=== PATIENT | female | born 1970 | race American Indian/Alaskan Native ===

== ENCOUNTER 2019-08-27 08:19 | Outpatient (CLI) | payer BC ==
[2019-08-27] MEDS ORDERED: REGADENOSON 0.4 MG/5 ML INJ IV ONE (11:13)
[2019-08-27 12:58] VITALS: BP 131/80
== END 2019-08-27 08:20 | disposition home or self-care (01) ==
LOC: ECHO 08:19
PROVIDERS: ATTEND Internal Medicine Cardiovascular Disease
DX: R00.2 Palpitations (principal); I10 Essential (primary) hypertension; R07.89 Other chest pain; R94.31 Abnormal electrocardiogram [ECG] [EKG]
CPT/HCPCS: 78452; 93017; 93306; A9502

== ENCOUNTER 2019-09-29 06:42 | Day surgery (SDC) | payer BC ==
[2019-09-29 07:39] LABS: Basophils % (Auto) 0.5 % (0.0-1.8); Eosinophils % (Auto) 1.4 % (0.0-4.3); Hematocrit 39.7 % (30.3-42.9); Hemoglobin 13.1 gm/dl (10.1-14.3); Lymphocytes # (Auto) 1.6 K/mm3 (1.2-5.4); Lymphocytes % (Auto) 50.1 % (13.4-35.0); Mean Corpuscular HGB Conc 33 % (30-34); Mean Corpuscular Volume 80 fl (79-97); Monocytes # (Auto) 0.3 K/mm3 (0.0-0.8); Platelet Count 296 K/mm3 (140-440); Red Blood Count 4.95 M/mm3 (3.65-5.03); Red Cell Distribution Width 14.9 % (13.2-15.2)
[2019-09-29 07:54] LABS: BUN/Creatinine Ratio 25; Blood Urea Nitrogen 15 mg/dL (7-17); Calcium 9.2 mg/dL (8.4-10.2); Hemolysis Index 6
[2019-09-29 07:57] LABS: INR 1.05 (0.87-1.13); Partial Thromboplastin Time 27.9 Sec. (24.2-36.6)
[2019-09-29] MEDS ORDERED: LIDOCAINE (2%) 20 MG/1 ML VIAL 20 ML MDV INFILTRATI ONE (08:00)
[2019-09-29] MEDS ORDERED: MIDAZOLAM 2 MG/2 ML INJ ONE (08:00)
[2019-09-29] MEDS ORDERED: HEPARIN/NS 5000 UNIT/500ML 1,000 ML IR ONE (08:00)
[2019-09-29] MEDS ORDERED: HEPARIN 10,000 UNITS/10 ML VIAL ONE (08:00)
[2019-09-29] MEDS: SODIUM CHLORIDE 0.9% 500 ML 500 ML IV SCH ×2 (08:00→08:30)
[2019-09-29] MEDS ORDERED: VERAPAMIL 5 MG/2 ML INJ ONE (08:00)
[2019-09-29] MEDS ORDERED: fentaNYL 100 MCG/2 ML INJ ONE (08:00)
[2019-09-29] MEDS ORDERED: POTASSIUM CHLORIDE ER 20 MEQ TAB PO ONE ×2 (08:03→08:30)
[2019-09-29] MEDS: NITROGLYCERIN SYRINGE 3 ML ONE ×2 (08:42→08:43)
--- NOTE | 2019-09-29 09:19 | Short Stay Summary ---
Short Stay Documentation Date of service: 09/29/19 - History H&P: obtained from office - Allergies and Medications Current Medications: Allergies Penicillins Allergy (Verified 08/27/19 11:12) Swelling Home Medications Medication Instructions Recorded Confirmed Last Taken Type Aspirin [Aspirin BABY CHEW TAB] 81 mg PO DAILY 09/29/19 09/29/19 09/29/19 07:45 History 81 MG Losartan [Cozaar] 100 mg PO DAILY 09/29/19 09/29/19 09/28/19 History 100 MG Metoprolol Xl [Metoprolol 50 mg PO BID 09/29/19 09/29/19 09/29/19 07:45 History SUCCINATE ER TAB] 50 mg amLODIPine 10 mg PO DAILY 09/29/19 09/29/19 09/29/19 07:45 History 10 MG hydroCHLOROthiazide 12.5 mg PO DAILY 09/29/19 09/29/19 09/28/19 History [Hydrochlorothiazide] 12.5MG Active Medications Sodium Chloride (Nacl 0.9% 500 Ml) 500 mls @ 50 mls/hr IV DIRECT ÁLVARO Stop: 09/29/19 17:59 Last Admin: 09/29/19 08:30 Dose: 50 mls/hr Documented by: - Brief post op/procedure progress note Date of procedure: 09/29/19 Pre-op diagnosis: cp Post-op diagnosis: same Procedure: see report Anesthesia: local Estimated blood loss: none Pathology: none - Disposition Condition at discharge: Good Disposition: DC-01 TO HOME OR SELFCARE - Discharge Diagnoses (1) Chest pain Status: Acute Qualifiers: Chest pain type: unspecified Qualified Code(s): R07.9 - Chest pain, unspecified (2) Hyperlipemia, mixed Status: Chronic (3) Diabetes mellitus Status: Chronic Qualifiers: Diabetes mellitus type: type 2 Diabetes mellitus remote computer terminal operator insulin use: with remote computer terminal operator use Diabetes mellitus complication status: without complication Qualified Code(s): E11.9 - Type 2 diabetes mellitus without complications; Z79.4 - group home (current) use of insulin Short Stay Discharge Plan Activity: advance as tolerated Diet: low fat, low cholesterol Wound: keep clean and dry Special Instructions: hold Metformin Follow up with: JAIMEE ALICEA MD [Primary Care Provider] - 7 Days
--- NOTE | 2019-09-29 09:24 | Cardiac Catherization Report ---
LEFT HEART CATHETERIZATION ORDERING PHYSICIAN: Dr. Monson's office. CLINICAL INFORMATION: This is a 49-year-old -[place] female who is having recurrent chest pain with mildly abnormal stress test despite being on beta blockers who has hypertension, diabetes, cholesterol. The patient was done with moderate sedation started at 8:28 a.m., finished at 8:50 which is 22 minutes of moderate sedation. Procedure was done via the right radial artery, sterile technique, local anesthesia, 6-Peruvian radial sheath inserted. Left system was engaged with JL3.5 catheter, left main is large and patent, bifurcates into large LAD, is patent from proximally and distally. High diagonal 1 is a large caliber vessel, patent. Diagonal 2 is a small to medium caliber and patent. Circumflex is a large caliber vessel, patent, goes into large OM1 that is patent. OM2 and OM3 are caliber vessel, patent. RCA is a large dominant vessel engaged with JR4 catheter, inferior takeoff, patent from proximally and distally. PDA, PLV are medium caliber vessels. LV gram done in SAMI and SAN view shows normal LV function, EF 55-60%. LVEDP 7 mmHg, LV is 133 mmHg. Aortic is 131/74. No gradient across the aortic valve on pullback. 5-Peruvian catheters all taken over guidewire, 6-Peruvian radial sheath was discontinued. Radial band applied. No hematoma, no bleeding. SUMMARY: Left main patent, LAD patent, diagonal 1 patent, diagonal 2 patent, circumflex patent, OM1 patent, RCA large, dominant, patent. PDA, PLV patent, normal LV function. Continue risk factor modification. Discussed this with the patient and the patient's family in detail. JOB# [id number] NERI/LEONEL
[2019-09-29 12:16] VITALS: BP 130/75
== END 2019-09-29 13:15 | disposition home or self-care (01) ==
LOC: CATHLABREC 06:42
PROVIDERS: ATTEND Internal Medicine
DX: R07.89 Other chest pain (principal); R94.39 Abnormal result of other cardiovascular function study; E11.9 Type 2 diabetes mellitus without complications; I10 Essential (primary) hypertension; E78.2 Mixed hyperlipidemia; Z88.0 Allergy status to penicillin; Z79.899 Other long term (current) drug therapy; Z79.82 Long term (current) use of aspirin; Z90.710 Acquired absence of both cervix and uterus; Z98.890 Other specified postprocedural states
CPT/HCPCS: 36415; 80048; 85025; 85610; 85730; 93005; 93458; 99156; C1894; J1644; J2250; J3010; J7040; Q9967

== ENCOUNTER 2020-06-10 07:53 | Emergency (ER) | payer BC ==
[2020-06-10 08:16] VITALS: BP 131/84
--- NOTE | 2020-06-10 08:43 | Emergency Department Report ---
ED Lower Extremity HPI - General Chief Complaint: Extremity Injury, Lower Stated Complaint: LEG PAINS Source: patient Mode of arrival: Ambulatory Limitations: No Limitations - History of Present Illness Initial Comments: 49-year-old morbid obese -[place] female that presents to the emergency room for left lower extremity tightness behind her knee. Patient reports pain started last night. Patient is concerned for clot. Patient works as a tech here in the hospital. Patient denies smoking cigarettes denies any control or hormonal medications. She has not recently traveled and has no cancer. Patient has no recent falls does have a past medical history of hypertension and obesity. She states that she has been wearing her knee braces on both legs secondary to chronic knee pain states that she has [id number]. She is not sure if the knee brace has caused the swelling and pain or if she has a clot. MD Complaint: knee injury -: During the night Injury: Knee: Left Severity scale (0 -10): 7 Improves With: nothing Worsens With: nothing Associated Symptoms: swelling - Related Data Home Medications Medication Instructions Recorded Confirmed Last Taken Aspirin [Aspirin BABY CHEW TAB] 81 mg PO DAILY 09/29/19 09/29/19 09/29/19 07:45 81 MG Losartan [Cozaar] 100 mg PO DAILY 09/29/19 09/29/19 09/28/19 100 MG Metoprolol Xl [Metoprolol 50 mg PO BID 09/29/19 09/29/19 09/29/19 07:45 SUCCINATE ER TAB] 50 mg amLODIPine 10 mg PO DAILY 09/29/19 09/29/19 09/29/19 07:45 10 MG hydroCHLOROthiazide 12.5 mg PO DAILY 09/29/19 09/29/19 09/28/19 [Hydrochlorothiazide] 12.5MG Allergies Allergy/AdvReac Type Severity Reaction Status Date / Time Penicillins Allergy Swelling Verified 08/27/19 11:12 ED Review of Systems ROS: Stated complaint: LEG PAINS Other details as noted in HPI Comment: All other systems reviewed and negative ED Past Medical Hx - Past Medical History Previous Medical History?: Yes Hx Hypertension: Yes Hx Diabetes: No (report previous hx metformin medication for high A1C, no longer [id number]) - Surgical History Past Surgical History?: Yes Hx Breast Surgery: Yes (Bx) - Social History Smoking Status: Never Smoker Substance Use Type: Alcohol - Medications Home Medications: Home Medications Medication Instructions Recorded Confirmed Last Taken Type Aspirin [Aspirin BABY CHEW TAB] 81 mg PO DAILY 09/29/19 09/29/19 09/29/19 07:45 History 81 MG Losartan [Cozaar] 100 mg PO DAILY 09/29/19 09/29/19 09/28/19 History 100 MG Metoprolol Xl [Metoprolol 50 mg PO BID 09/29/19 09/29/19 09/29/19 07:45 History SUCCINATE ER TAB] 50 mg amLODIPine 10 mg PO DAILY 09/29/19 09/29/19 09/29/19 07:45 History 10 MG hydroCHLOROthiazide 12.5 mg PO DAILY 09/29/19 09/29/19 09/28/19 History [Hydrochlorothiazide] 12.5MG ED Physical Exam - General Limitations: No Limitations General appearance: alert, in no apparent distress, obese - Head Head exam: Present: atraumatic, normocephalic - Eye Eye exam: Present: normal appearance - ENT ENT exam: Present: mucous membranes moist - Neck Neck exam: Present: normal inspection, full ROM - Respiratory Respiratory exam: Absent: accessory muscle use - Cardiovascular Cardiovascular Exam: Present: regular rate - Expanded Lower Extremity Exam Left Knee exam: Present: full ROM, tenderness (Posterior). Absent: deformity, dislocation, erythema Lower Leg exam: Present: full ROM, tenderness (Superior calf) Ankle exam: Present: normal inspection Foot/Toe exam: Present: normal inspection Gait: Positive: observed and normal - Back Exam Back exam: Present: normal inspection, full ROM - Neurological Exam Neurological exam: Present: alert, oriented X3, normal gait - Psychiatric Psychiatric exam: Present: normal affect, normal mood - Skin Skin exam: Present: warm, dry, intact, normal color. Absent: rash ED Course Vital Signs 06/10/20 08:10 Temperature 97.9 F Pulse Rate 83 Respiratory 20 Rate Blood Pressure 131/84 O2 Sat by Pulse 98 Oximetry ED Lower Extremity MDM - Radiology Data Radiology results: report reviewed Patient: ROBLES ABRAMS MR#: [id number] : 1970 Acct:[id number] Age/Sex: 49 / F ADM Date: 06/10/20 Loc: ED Attending Dr: Ordering Physician: NOY NINA Date of Service: 06/10/20 Procedure(s): VL venous duplex LE LT Accession Number(s): [id number] cc: NOY NINA DUPLEX DOPPLER LOWER EXTREMITY VEINS, LEFT INDICATION: pain behind her knee and swelling. TECHNIQUE: Duplex doppler imaging was performed through the veins of the left lower extremity using venous compression and other maneuvers. COMPARISON: None available. FINDINGS: Common Femoral vein: Negative. Superficial Femoral vein: Negative. Popliteal vein: Negative. Calf veins: Negative. Additional findings: Small popliteal cyst measuring 2 x 1 cm.. IMPRESSION: 1. No sonographic evidence for DVT in the left lower extremity. Signer Name: Phil Butts MD Signed: 06/10/2020 10:09 AM Workstation Name: [id number] Transcribed By: JAMIE Dictated By: Phil Butts MD Electronically Authenticated By: Phil Butts MD Signed Date/Time: 06/10/20 1009 DD/ 1008 TD/TT: - Medical Decision Making 49-year-old morbid obese -[place] female that presents to the emergency room for left lower extremity tightness behind her knee. Patient reports pain started last night. Patient is concerned for clot. Patient works as a tech here in the hospital. Patient denies smoking cigarettes denies any control or hormonal medications. She has not recently traveled and has no cancer. Patient has no recent falls does have a past medical history of hypertension and obesity. She states that she has been wearing her knee braces on both legs secondary to chronic knee pain states that she has [id number]. She is not sure if the knee brace has caused the swelling and pain or if she has a clot. Left lower extremity Doppler has been ordered. Ultrasounds negative for DVT. Patient to take Tylenol ibuprofen for pain. Discussed the patient is most likely due to her neoprene knee brace that she has worn for several hours and this may have caused some structure to her leg which causes pain in mild swelling. Patient is to follow-up with her primary care provider. Critical care attestation.: If time is entered above; I have spent that time in minutes in the direct care of this critically ill patient, excluding procedure time. ED Disposition Clinical Impression: Pain in left lower leg Disposition: DC-01 TO HOME OR SELFCARE Is pt being admited?: No Does the pt Need Aspirin: No Condition: Stable Additional Instructions: Ultrasounds negative for DVT. Most likely this pain and swelling is due from your ankle brace being too tight and wearing it too long. I recommend for you to follow-up with your primary care provider. He can take Tylenol or ibuprofen as needed for pain management.
--- NOTE | 2020-06-10 10:13 | Vascular Lab Report ---
DUPLEX DOPPLER LOWER EXTREMITY VEINS, LEFT INDICATION: pain behind her knee and swelling. TECHNIQUE: Duplex doppler imaging was performed through the veins of the left lower extremity using venous compr ession and other maneuvers. COMPARISON: None available. FINDINGS: Common Femoral vein: Negative. Superficial Femoral vein: Negative. Popliteal vein: Negative. Calf veins: Negative. Additional findings: Small popliteal cyst measuring 2 x 1 cm.. IMPRESSION: 1. No sonographic evidence for DVT in the left lower extremity. Signer Name: Phil Butts MD Signed: 06/10/2020 10:09 AM Workstation Name: [id number]
== END 2020-06-10 10:34 | disposition home or self-care (01) ==
LOC: ED 07:53
DX: M79.662 Pain in left lower leg (principal); I10 Essential (primary) hypertension; E11.9 Type 2 diabetes mellitus without complications; Z88.0 Allergy status to penicillin; Z79.899 Other long term (current) drug therapy; Z98.890 Other specified postprocedural states

== ENCOUNTER 2021-10-18 09:46 | Day surgery (SDC) | payer BC ==
[2021-09-25 08:57] LABS: Hematocrit 38.9 % (30.3-42.9); Hemoglobin 12.5 gm/dl (10.1-14.3); Mean Corpuscular HGB Conc 32 % (30-34); Mean Corpuscular Volume 82 fl (79-97); Platelet Count 282 K/mm3 (140-440); Red Blood Count 4.77 M/mm3 (3.65-5.03)
[2021-09-25 09:14] LABS: Blood Urea Nitrogen 22 mg/dL (7-17); Calcium 9.3 mg/dL (8.4-10.2); Hemolysis Index 0
[2021-09-25 09:15] LABS: BUN/Creatinine Ratio 37
[2021-10-18] MEDS ORDERED: LACTATED RINGERS 1,000 ML ONE (10:39)
[2021-10-18] MEDS ORDERED: LACTATED RINGERS 1,000 ML IV SCH (11:15)
[2021-10-18] MEDS ORDERED: BUPIVACAINE/PF (0.5%) 5 MG/1 ML 10 ML VIAL INFILTRATI ONE ×3 (13:08→15:11)
[2021-10-18] MEDS ORDERED: methylPREDNISolone ACETATE 40 MG/1 ML INJ ONE (13:08)
[2021-10-18] MEDS ORDERED: LIDOCAINE (1%) 10 MG/1 ML VIAL 20 ML MDV ONE (13:08)
[2021-10-18] MEDS ORDERED: fentaNYL 100 MCG/2 ML INJ ONE (14:21)
[2021-10-18] MEDS ORDERED: SODIUM CHLORIDE 0.9% 500 ML 500 ML ONE (14:21)
[2021-10-18] MEDS ORDERED: MIDAZOLAM 2 MG/2 ML INJ ONE (14:21)
[2021-10-18] MEDS ORDERED: propofoL 200 MG/20 ML VIAL IV ONE ×4 (14:22→15:48)
--- NOTE | 2021-10-18 15:02 | Anesthesia Day of Surgery ---
Anesthesia Day of Surgery - Day of Surgery Patient Examined: Yes Patient H&P Reviewed: Yes Patient is NPO: Yes
--- NOTE | 2021-10-18 15:04 | Anesthesia Consultation ---
Anesthesia Consult and Med Hx Date of service: 10/18/21 - Airway Anesthetic Teeth Evaluation: Good ROM Head & Neck: Adequate Mental/Hyoid Distance: Adequate Mallampati Class: Class III Intubation Access Assessment: Probably Good - Pre-Operative Health Status ASA Pre-Surgery Classification: ASA3 Proposed Anesthetic Plan: MAC (GA if needed) - Pulmonary Hx Smoking: No SOB: Yes (WITH ACTIVITY) Hx Sleep Apnea: No (ZAIRE PRE SCREEN HIGH RISK) - Cardiovascular System Hx Hypertension: Yes Hx Heart Attack/AMI: No (Pt reports negative ECHO & Cath 2020 when had COVID) Hx Cardia Arrhythmia: Yes - Central Nervous System Hx Back Pain: Yes Hx Psychiatric Problems: No - Gastrointestinal Hx Gastroesophageal Reflux Disease: No - Endocrine Hx Non-Insulin Dependent Diabetes: Yes - Hematic Hx Anemia: Yes Hx Sickle Cell Disease: No - Other Systems Hx Alcohol Use: Yes Hx Cancer: No Hx Obesity: Yes
[2021-10-18] MEDS ORDERED: LIDOCAINE (1%) 10 MG/1 ML VIAL 20 ML MDV INFILTRATI ONE (15:11)
[2021-10-18] MEDS ORDERED: methylPREDNISolone ACETATE 40 MG/1 ML INJ INTRA-ARTI ONE (15:12)
--- NOTE | 2021-10-18 16:05 | Procedure Note ---
Date of procedure: 10/18/21 Pre-op diagnosis: Chronic right knee pain osteoarthritis Post-op diagnosis: same Procedure: Geniculate nerve radiofrequency ablation right knee Procedure The patient was brought to the OR and placed in the OR table supine position patient was Given IV and was masked the procedure following this the patient's right knee was prepped and draped in the routine sterile manner. A timeout procedure was done to identify the patient and the correct operative site. Under C-arm visualization the skin was anesthetized with the 1% lidocaine at both the medial and lateral suprapatellar regions as well as the proximal portion of the medial tibial metaphysis. Following this the the introducers radiofrequency ablator introducer probes were inserted into the distal femoral metaphysis close to the bone and midway along the sagittal plane as well as along the proximal tibial metaphysis to be appropriate place simultaneously following this following this the probe were checked for full motor nerve function there did not appear to be any next the radiofrequency ablator was turned on and the nerves were ablated to a temperature of 60C for approximately 2-1/2 minutes each. A mixture of Depo-Medrol and lidocaine was then injected into each location to help with postoperative pain and inflammation. The patient tolerated the procedure there were no complications he was then taken to postanesthesia recovery in a stable condition Anesthesia: MAC Surgeon: LUIS NAIR Estimated blood loss: minimal Pathology: none Condition: stable Disposition: PACU
--- NOTE | 2021-10-18 16:42 | Post Anesthesia Evaluation ---
- Post Anesthesia Evaluation Patient Participated: Yes Airway Patent: Yes Stable Respiratory Function: Yes Nausea/Vomiting: No Temp > 96.8F: Yes Pain Manageable: Yes Adequeate Hydration: Yes Anesthesia Complications: No Block Receding Appropriately: Not Applicable Patient on Ventilator: No
[2021-10-18 17:33] VITALS: BP 125/83
--- NOTE | 2021-10-19 08:01 | Fluoroscopy Report ---
FLUOROSCOPY GUIDANCE NEEDLE PLACEMENT INDICATION: RIGHT JOINT EFFUSION WITH NERVE ABLATION RFA. COMPARISON: None. IMPRESSION: 0.2 seconds of fluoroscopy time was provided by radiology during needle placement by ian whitlock. 7 fluoroscopic images are presented demonstrating needle placement surrounding the right k nee. Please correlate with the procedural report by Dr. Archibald. Signer Name: Juvenal Chambers Jr, MD Signed: 10/19/2021 7:56 AM Workstation Name: [id number]
== END 2021-10-18 17:20 | disposition home or self-care (01) ==
LOC: OR 09:46
PROVIDERS: ATTEND Orthopaedic Surgery
DX: M17.11 Unilateral primary osteoarthritis, right knee (principal); E78.2 Mixed hyperlipidemia; I42.9 Cardiomyopathy, unspecified; I10 Essential (primary) hypertension; Z90.710 Acquired absence of both cervix and uterus; E11.9 Type 2 diabetes mellitus without complications; D64.9 Anemia, unspecified; Z20.822 Contact with and (suspected) exposure to COVID-19; Z88.0 Allergy status to penicillin; Z79.899 Other long term (current) drug therapy; Z79.84 Long term (current) use of oral hypoglycemic drugs; E66.9 Obesity, unspecified; Z72.89 Other problems related to lifestyle; Z98.890 Other specified postprocedural states; Z68.42 Body mass index [BMI] 45.0-49.9, adult
CPT/HCPCS: 36415; 64624; 77002; 80048; 82962; 85027; A4649; J1030; J2250; J2704; J3010; J3490; J7040; J7120; U0003

== ENCOUNTER 2021-12-06 08:13 | Outpatient (CLI) | payer BC ==
[2021-12-06 09:06] LABS: Hematocrit 38.4 % (30.3-42.9); Hemoglobin 12.3 gm/dl (10.1-14.3); Mean Corpuscular HGB Conc 32 % (30-34); Mean Corpuscular Volume 82 fl (79-97); Red Blood Count 4.71 M/mm3 (3.65-5.03)
[2021-12-06 09:23] LABS: Platelet Count 224 K/mm3 (140-440)
[2021-12-06 09:27] LABS: Alanine Aminotransferase 22 units/L (7-56); Albumin 4.8 g/dL (3.9-5); Blood Urea Nitrogen 21 mg/dL (7-17); Calcium 9.7 mg/dL (8.4-10.2); Chol/HDL Ratio 3.02 %; HDL Cholesterol 69 mg/dL (40-59); Hemolysis Index 3; LDL Cholesterol,Direct 118 mg/dL (50-130)
[2021-12-06 09:30] LABS: BUN/Creatinine Ratio 30
[2021-12-10 15:25] LABS: Vitamin D, 25-OH, D2 <4 ng/mL
== END 2021-12-06 08:14 | disposition home or self-care (01) ==
LOC: LAB 08:13
PROVIDERS: ATTEND Family Medicine
DX: Z00.00 Encounter for general adult medical examination without abnormal findings (principal)
CPT/HCPCS: 36415; 80053; 80061; 82306; 83001; 84443; 85027

== ENCOUNTER 2021-12-28 09:27 | Day surgery (SDC) | payer BC ==
[2021-12-28] MEDS ORDERED: LIDOCAINE (1%) 10 MG/1 ML VIAL 20 ML MDV ONE (10:22)
[2021-12-28] MEDS ORDERED: BUPIVACAINE/PF (0.5%) 5 MG/1 ML 30 ML VIAL INFILTRATI ONE ×2 (10:22→11:45)
--- NOTE | 2021-12-28 11:21 | Procedure Note ---
Date of procedure: 12/28/21 Pre-op diagnosis: Chronic left knee pain Post-op diagnosis: same Procedure: [Left] Geniculate Nerve Block under C-arm fluroscopy procedure The patient taken to the operating room where she was place on the table supine with padded triangular pad placed along the potileal fossa. The [left] knee prepped and draped in usual sterile fashion. 22-gauge spinal needle used to locate areas for injection, the medial and lateral supracondylar ridges, 2 cm proximal to the superior pole of the patella as well as the medial border of the proximal tibia. These areas were anesthized using lidocaine 1% followed by placement of spinal needle near the medial, and lateral geniculate nerves. A mixture of marcaine and lidocaine injected into the deeper structures. There were no complications noted and she tolerated well. Anesthesia: local Surgeon: LUIS NAIR Estimated blood loss: minimal Pathology: none Condition: stable Disposition: observation
[2021-12-28] MEDS ORDERED: LIDOCAINE (1%) 10 MG/1 ML VIAL 20 ML MDV INFILTRATI ONE (11:45)
[2021-12-28 11:49] VITALS: BP 143/84
--- NOTE | 2021-12-28 13:52 | XRay Report ---
LEFT KNEE 2 VIEWS INDICATION: LEFT KNEE PAIN. COMPARISON: None. IMPRESSION: 0.4 minutes of fluoroscopy time was provided by radiology during left knee nerve block. 2 fluoroscopic images are presented demonstrating needle placement. Please correlate with the proced ural report by orthopedics. Signer Name: Juvenal Chambers Jr, MD Signed: 12/28/2021 1:48 PM Workstation Name: [id number]
== END 2021-12-28 11:44 | disposition home or self-care (01) ==
LOC: OR 09:27
PROVIDERS: ATTEND Orthopaedic Surgery
DX: M25.562 Pain in left knee (principal); G89.29 Other chronic pain; E78.2 Mixed hyperlipidemia; E11.9 Type 2 diabetes mellitus without complications; I42.9 Cardiomyopathy, unspecified; I10 Essential (primary) hypertension; E66.9 Obesity, unspecified; M19.90 Unspecified osteoarthritis, unspecified site; D64.9 Anemia, unspecified; Z88.0 Allergy status to penicillin; Z79.899 Other long term (current) drug therapy; Z79.82 Long term (current) use of aspirin; Z90.710 Acquired absence of both cervix and uterus; Z72.89 Other problems related to lifestyle; Z98.890 Other specified postprocedural states; Z68.42 Body mass index [BMI] 45.0-49.9, adult
CPT/HCPCS: 64454; 73560; 82962; J3490